=== PATIENT | male | born 1990 | race Caucasian/White ===

== ENCOUNTER 2019-01-17 20:38 | Emergency (ER) | payer MEDICAID ==
[~2019-01-17] VITALS: Ht 180.3 cm; Wt 90.0 kg
[2019-01-17 21:10] VITALS: BP 134/93; Ht 180.3 cm; Wt 90.0 kg
== END 2019-01-17 22:32 | disposition home or self-care (01) ==
LOC: ED 20:38
DX: J32.9 Chronic sinusitis, unspecified (principal)